=== PATIENT | male | born 1970 | race Native Hawaiian/Other Pacific Islander ===

== ENCOUNTER 2020-12-10 11:00 | Outpatient (CLI) | payer OTHER ==
[~2020-12-10 11:00] MED LIST: ALPR0.5T24 PO; LOSA50TA PO; PAXIL30 MG PO; PRILOSEC OTC20 MG PO; XANAX XR1 MG PO
== END 2020-12-10 20:12 | disposition home or self-care (01) ==
LOC: RESP 11:00
PROVIDERS: ATTEND Specialist
DX: Z01.810 Encounter for preprocedural cardiovascular examination (principal); I25.10 Atherosclerotic heart disease of native coronary artery without angina pectoris; I10 Essential (primary) hypertension; F10.10 Alcohol abuse, uncomplicated; R94.2 Abnormal results of pulmonary function studies

== ENCOUNTER 2020-12-23 08:35 | Outpatient (CLI) | payer OTHER ==
[~2020-12-23] VITALS: Ht 30.5 cm; Wt 0.5 kg
== END 2020-12-23 20:59 | disposition home or self-care (01) ==
LOC: NM 08:35
PROVIDERS: ATTEND Specialist
DX: Z01.810 Encounter for preprocedural cardiovascular examination (principal); I25.10 Atherosclerotic heart disease of native coronary artery without angina pectoris; I10 Essential (primary) hypertension; F10.10 Alcohol abuse, uncomplicated; R94.2 Abnormal results of pulmonary function studies
CPT/HCPCS: A9500; J2785